=== PATIENT | female | born 1960 | race Caucasian/White ===

== ENCOUNTER 2020-11-08 09:31 | Day surgery (SDC) | payer BC ==
[~2020-11-08 09:31] MED LIST: Lactated Ringers 1,000 ML IV SCH
[2020-11-08] MEDS ORDERED: Propofol 200 MG/20 ML SDV ONE ×3 (10:55→12:00)
[2020-11-08] MEDS ORDERED: fentaNYL 100 MCG/2 ML SDV ONE (10:55)
--- NOTE | 2020-11-09 07:16 | OR ---
PREOPERATIVE DIAGNOSIS: Screening colonoscopy. POSTOPERATIVE DIAGNOSIS: Screening colonoscopy. PROCEDURE PERFORMED: Screening colonoscopy. COMPLICATIONS: None. SPECIMENS: None. ESTIMATED BLOOD LOSS: None. PROCEDURE IN DETAIL: This was done in the endoscopy suite. Sedation was given per Anesthesia. She was placed in the left lateral position. First, a rectal exam was done and was normal. Scope was then introduced into the rectum, slowly advanced through the rectum, sigmoid, descending, transverse, and ascending colon until the cecum was reached. Upon reaching the cecum, scope was slowly withdrawn looking at all mucosal surfaces on the way out. No mucosal abnormalities were noted except for moderate to severe sigmoid diverticulosis. FINAL DIAGNOSIS: Sigmoid diverticulosis. BKD: 11/08/2020 12:26:53 MODL: 11/08/2020 16:21:10 /[id number]
== END 2020-11-08 13:00 | disposition home or self-care (01) ==
LOC: VM.SDS 09:31
PROVIDERS: ATTEND Surgery
DX: Z12.11 Encounter for screening for malignant neoplasm of colon (principal); K57.30 Diverticulosis of large intestine without perforation or abscess without bleeding; M25.552 Pain in left hip
CPT/HCPCS: 00812; J2704; J3010; J7120